=== PATIENT | female | born 1995 | race Caucasian/White ===

== ENCOUNTER 2016-06-04 19:41 | Emergency (ER) | payer OTHER ==
--- NOTE | 2016-06-04 19:46 | ER Document Report ---
ED Medical Screen (RME) - General Stated Complaint: POSSIBLE ALLERGIC REACTION Time seen by provider: 19:45 Mode of Arrival: Ambulatory Information source: Patient Notes: 20-year-old female had an epidural on June 01 . She has what looks like a contact dermatitis extensively on her back. It itches. No fever. TRAVEL OUTSIDE OF THE [place] IN LAST 30 DAYS: No Past Medical History Pulmonary Medical History: Reports: Hx Asthma
[2016-06-04] MEDS ORDERED: DIPHENHYDRAMINE HCL 25 MG CAPSULE PO ONE (19:50)
[2016-06-04 20:04] LABS: HEMATOCRIT 34.1 % (36.0-47.0); HEMOGLOBIN 11.1 g/dL (12.0-15.5); HGB HCT DIFFERENCE -0.8; MEAN CORPUSCULAR HEMOGLOBIN 25.8 pg (27.0-33.4); MEAN CORPUSCULAR HGB CONC 32.6 g/dL (32.0-36.0); MEAN CORPUSCULAR VOLUME 79 fl (80-97); RED BLOOD COUNT 4.31 10^6/uL (3.72-5.28); RED CELL DISTRIBUTION WIDTH 20.2 % (11.5-14.0); WHITE BLOOD COUNT 9.8 10^3/uL (4.0-10.5)
[2016-06-04 20:05] LABS: ABSOLUTE BASOPHILS # (AUTO) 0.1 10^3/uL (0.0-0.2); ABSOLUTE EOSINOPHILS # (AUTO) 0.4 10^3/uL (0.0-0.6); ABSOLUTE LYMPHOCYTES (AUTO) 1.4 10^3/uL (0.5-4.7); ABSOLUTE MONOCYTES (AUTO) 0.5 10^3/uL (0.1-1.4); ABSOLUTE NEUT (AUTO) 7.4 10^3/uL (1.7-8.2); BASOPHILS % (AUTO) 0.6 % (0-2); EOSINOPHILS % (AUTO) 4.2 % (0-6); LYMPHOCYTES % (AUTO) 14.7 % (13-45); MONOCYTES % (AUTO) 5.5 % (3-13)
[2016-06-04 20:22] LABS: ALANINE AMINOTRANSFERASE 26 U/L (5-35); ALBUMIN 2.9 g/dL (3.7-5.6); ALKALINE PHOSPHATASE 155 U/L (50-135); ANION GAP 8 (5-19); ASPARTATE AMINO TRANSFERASE 31 U/L (5-30); BILIRUBIN,TOTAL 0.3 mg/dL (0.2-1.3); BLOOD UREA NITROGEN 12 mg/dL (7-20); CALCIUM 8.7 mg/dL (8.4-10.2); CARBON DIOXIDE 25 mmol/L (22-30); CHLORIDE 108 mmol/L (98-107); CREATININE RESULT 0.72 mg/dL (0.52-1.25); GLUCOSE 76 mg/dL (75-110); POTASSIUM 4.2 mmol/L (3.6-5.0); SODIUM 141.4 mmol/L (137-145); TOTAL PROTEIN 5.7 g/dL (6.3-8.2)
[2016-06-04] MEDS ORDERED: FAMOTIDINE 20 MG TABLET PO ONE (20:33)
[2016-06-04] MEDS ORDERED: PREDNISONE 20 MG TABLET PO ONE (20:33)
[2016-06-04] MEDS ORDERED: METHYLPREDNISOLONE INJ 125 MG/2 ML SDV IM ONE (20:39)
--- NOTE | 2016-06-04 20:45 | ER Document Report ---
ED Skin Rash/Insect Bite/Abscs - General Chief Complaint: Skin Problem Stated Complaint: POSSIBLE ALLERGIC REACTION Time seen by provider: 20:35 Mode of Arrival: Ambulatory Notes: Patient is a 20-year-old female that comes emergency department for chief complaint of a rash on her back, the rash started at the area of a dressing where an epidural was performed on 06/01/2016 by Carmela Garcia [employer]. Patient states today the rash spread up her back. The rash is itchy but not tender. She denies fever or chills. Patient states that she is minimally breast- feeding because of latching difficulties, patient is primarily formula fed. Past medical history of asthma, patient takes no daily medications. TRAVEL OUTSIDE OF THE [place] IN LAST 30 DAYS: No - Related Data Allergies/Adverse Reactions: aspirin Allergy (Verified 06/04/16 19:53) Past Medical History - General Information source: Patient - Social History Smoking Status: Never Smoker Chew tobacco use (# tins/day): No Frequency of alcohol use: Occasional Drug Abuse: None Lives with: Family Family History: None Patient has suicidal ideation: No Patient has homicidal ideation: No Pulmonary Medical History: Reports: Hx Asthma Renal/ Medical History: Denies: Hx Peritoneal Dialysis Surgical Hx: Negative - Immunizations Immunizations up to date: Yes Hx Diphtheria, Pertussis, Tetanus Vaccination: Yes Review of Systems - Review of Systems Constitutional: No symptoms reported EENT: No symptoms reported Cardiovascular: No symptoms reported Respiratory: No symptoms reported Gastrointestinal: No symptoms reported Genitourinary: No symptoms reported Female Genitourinary: No symptoms reported Musculoskeletal: No symptoms reported Skin: See HPI Hematologic/Lymphatic: No symptoms reported Neurological/Psychological: No symptoms reported Physical Exam - Vital signs Vitals: Temp Pulse Resp BP Pulse Ox 97.3 F 117 H 17 150/98 H 98 06/04/16 19:50 06/04/16 19:50 06/04/16 19:50 06/04/16 19:50 06/04/16 19:50 Interpretation: Normal - General General appearance: Appears well, Alert In distress: None - HEENT Head: Normocephalic, Atraumatic Eyes: Normal Extraocular movements intact: Yes Eyelashes: Normal Pupils: PERRL Sinus: Normal Nasal: Normal Mouth/Lips: Normal Mucous membranes: Normal Pharynx: Normal Neck: Normal - Respiratory Respiratory status: No respiratory distress Chest status: Nontender Breath sounds: Normal. No: Decreased air movement, Productive cough, Wheezing Chest palpation: Normal - Cardiovascular Rhythm: Regular. No: Tachycardia Heart sounds: Normal auscultation, S1 appreciated, S2 appreciated Murmur: No - Abdominal Inspection: Normal Distension: No distension Bowel sounds: Normal Tenderness: Nontender Organomegaly: No organomegaly - Back Back: Normal, Nontender - Extremities General upper extremity: Normal inspection, Nontender, Normal color, Normal ROM , Normal temperature General lower extremity: Normal inspection, Nontender, Normal color, Normal ROM , Normal temperature, Normal weight bearing. No: Kat's sign - Neurological Neuro grossly intact: Yes Cognition: Normal Orientation: AAOx4 [place] Coma Scale Eye Opening: Spontaneous [place] Coma Scale Verbal: Oriented [place] Coma Scale Motor: Obeys Commands [place] Coma Scale Total: 15 Speech: Normal Motor strength normal: LUE, RUE, LLE, RLE Sensory: Normal - Psychological Associated symptoms: Normal affect, Normal mood - Skin Skin Temperature: Warm Skin Moisture: Dry Skin Color: Normal Skin irregularity: Rash - There is a square shaped erythematous area on the mid lower back, slightly elevated, non-tender; there are splotchy erythematous patches adjacent and above this area, up to the upper back. No vesicles, pustules, bulla, induration, fluctuance, tenderness. Course - Re-evaluation Re-evalutation: Rash appears to be a fairly significant contact dermatitis. Patient given a shot of Solu-Medrol, antihistamines, will be provided with both antihistamines and a topical steroid for the contact dermatitis. Discussed with Dr. Braun. Patient states that she is only intermittently breast-feeding because of a lack of latching ability, she states that she will resume breast- feeding tomorrow because of the shot, she will take the Pepcid carefully. Patient states he will follow-up with her provider and she'll return if she worsens in any way. Encouraged him to monitor the area closely and return for any signs of infection or spreading. Patient and significant other state understanding and agreement. - Vital Signs Vital signs: Temp Pulse Resp BP Pulse Ox 98 F 88 20 142/91 H 97 06/04/16 21:01 06/04/16 21:01 06/04/16 21:01 06/04/16 21:01 06/04/16 21:01 - Laboratory Result Diagrams: 06/04/16 19:55 06/04/16 19:55 Laboratory results interpreted by me: 06/04/16 06/04/16 19:55 19:55 Hgb 11.1 L Hct 34.1 L MCV 79 L MCH 25.8 L RDW 20.2 H Chloride 108 H AST 31 H Alkaline Phosphatase 155 H Total Protein 5.7 L Albumin 2.9 L Discharge - Discharge Clinical Impression: Skin rash Condition: Stable Disposition: HOME, SELF-CARE Additional Instructions: Area appears to be contact dermatitis, probably initially from the dressing. Resume breast-feeding tomorrow. Take the prescribed medication, wait approximately 4 hours before breast- feeding to reduce excretion. Apply the cream as directed. Follow up with [employer]. Monitor the area and return immediately for increased spreading, signs of infection including red streaks away from the area, crusting of the edges, pain to the area, or development of a fever. Prescriptions: Clobetasol Propionate [Clobetasol Propionate Cream] 1 applic TP BID #1 cream.gm. Famotidine [Pepcid 20 mg Tablet] 20 mg PO BID #14 tablet Loratadine [Claritin 10 mg Tablet] 10 mg PO DAILY #30 tablet Forms: Elevated Blood Pressure
[2016-06-04 21:02] VITALS: BP 142/91
== END 2016-06-04 21:02 | disposition home or self-care (01) ==
LOC: ER 19:41
DX: O90.9 Complication of the puerperium, unspecified (principal); R21 Rash and other nonspecific skin eruption; Z88.6 Allergy status to analgesic agent
CPT/HCPCS: 99283; 96372; 36415; 85025; 80053; J2930

== ENCOUNTER 2016-06-08 19:18 | Emergency (ER) | payer OTHER ==
--- NOTE | 2016-06-08 19:57 | ER Document Report ---
ED Medical Screen (RME) - General Stated Complaint: RASH Notes: 20 yo female c/o worsening rash to back and chest. pt was seen in ED 06/04 for same. reports rash was improving until today. rash is pruritic but not tender. pt taking claritin, pepcid and clobetasol as prescribed. pt is 7 days post . BP is noted to be elevated at triage. no hx/o HTN. no shortness of breath, facial swelling. TRAVEL OUTSIDE OF THE [place] IN LAST 30 DAYS: No - Related Data Allergies/Adverse Reactions: aspirin Allergy (Verified 06/04/16 19:53) Past Medical History Pulmonary Medical History: Reports: Hx Asthma Renal/ Medical History: Denies: Hx Peritoneal Dialysis - Immunizations Immunizations up to date: Yes Hx Diphtheria, Pertussis, Tetanus Vaccination: Yes
[2016-06-08] MEDS ORDERED: PREDNISONE 20 MG TABLET PO ONE (20:02)
[2016-06-08] MEDS ORDERED: DIPHENHYDRAMINE HCL 25 MG CAPSULE PO ONE (20:02)
--- NOTE | 2016-06-08 21:31 | ER Document Report ---
HPI - HPI Patient complains to provider of: rash Pain Level: 4 Context: Patient is a 20-year-old female that comes emergency department for chief complaint of a rash on her back. Patient was seen about 4 days ago, was given a shot of Solu-Medrol and antihistamines, was trying to avoid prednisone because of potential planning to breast-feed, however patient is not breast- feeding because child will not latch. Patient states that the rash initially improved over the first 2 days, however she states it is starting to worsen again with areas of hives beginning over her back and a faint rash on her face. She denies any swelling, difficulty breathing, fever, or any other new abnormalities. - REPRODUCTIVE Reproductive: REPORTS: : - DERM Skin Color: Normal Past Medical History - General Information source: Patient - Social History Smoking Status: Never Smoker Frequency of alcohol use: None Drug Abuse: None Lives with: Family Family History: None Patient has suicidal ideation: No Patient has homicidal ideation: No Pulmonary Medical History: Reports: Hx Asthma Renal/ Medical History: Denies: Hx Peritoneal Dialysis Surgical Hx: Negative - Immunizations Immunizations up to date: Yes Hx Diphtheria, Pertussis, Tetanus Vaccination: Yes Vertical Provider Document - CONSTITUTIONAL General Appearance: WD/WN, No Apparent Distress - INFECTION CONTROL TRAVEL OUTSIDE OF THE [place] IN LAST 30 DAYS: No - HEENT HEENT: Atraumatic, Normal ENT Exam, Normocephalic - NECK Neck: Normal Inspection - RESPIRATORY Respiratory: Breath Sounds Normal, No Respiratory Distress - CARDIOVASCULAR Cardiovascular: Regular Rate, Regular Rhythm - GI/ABDOMEN Gastrointestinal: Abdomen Soft, Abdomen Non-Tender - MUSCULOSKELETAL/EXTREMETIES Musculoskeletal/Extremeties: MAEW, FROM, Non-Tender - NEURO Level of Consciousness: Awake, Alert, Appropriate - DERM Integumentary: Rash - Widespread urticaria over the back, no induration or fluctuance, no vesicles, no bulla, no other abnormalities noted Course - Re-evaluation Re-evalutation: I saw patient last time, previously patient had a very defined area of dermatitis with surrounding macular rash, on reevaluation patient has significantly improved area of dermatitis but appears to have urticaria over the back. Patient heart he received 50 mg Benadryl and prednisone from triage, she states that the rash is already improving and she feels improved overall. No mucous membrane involvement, clear lungs, patient will be started on prednisone, continued on antihistamines, patient is to follow-up with her primary care, discussed return precautions. Patient states understanding and agreement. Discharge - Discharge Clinical Impression: Skin rash, Urticaria Condition: Stable Disposition: HOME, SELF-CARE Additional Instructions: You also have hives on examination now, please take the prednisone taper as directed, take the Benadryl instead of the Claritin, continue Pepcid, you may needs some moisturizing cream over the area where the clobetasol cream was placed. Follow-up with your primary care provider. Return to emergency department for any concerning or worsening symptoms. Prescriptions: Diphenhydramine HCl [Benadryl 25 mg Capsule] 1 - 2 cap PO Q6 PRN #40 capsule PRN Reason: Prednisone [Deltasone 10 mg Tablet] 10 mg PO ASDIR PRN #21 tablet PRN Reason:
[2016-06-08 23:36] VITALS: BP 129/79
== END 2016-06-08 21:35 | disposition home or self-care (01) ==
LOC: ER 19:18
DX: L50.9 Urticaria, unspecified (principal)
CPT/HCPCS: 99282; J7512